=== PATIENT | male | born 1990 | race Caucasian/White ===

== ENCOUNTER 2017-02-10 17:07 | Emergency (ER) | payer SELFPAY ==
--- NOTE | 2017-02-10 18:04 | ER NURSING DOCUMENTATION ---
Nurse's Notes [facility] Name:Miguel Alex Age:27 yrs Sex:Male :1990 Arrival Date:02/10/2017 Time:17:07 Bed2 Private MD: Diagnosis:Finger Laceration Presentation: 02/10 17:09 Acuity: FELIX 4 rh 17:15 Presenting complaint: Patient states: Pt dropped an axe on the left middle finger, rh laceration to left middle finger. Transition of care: Home. 17:15 Method Of Arrival: Private Vehicle Triage Assessment: 17:15 General: Appears in no apparent distress, Behavior is cooperative. Pain: Complains of rh pain in palmar aspect of middle phalanx of left middle finger. Musculoskeletal: Circulation, motion, and sensation intact Range of motion intact in all extremities. Reports numbness in palmar aspect of proximal phalanx of left middle finger. Injury Description: Laceration sustained to palmar aspect of proximal phalanx of left middle finger is clean, 0.5 to 2.5 cm long, was sustained 30-60 minutes ago. is bleeding a small amount. Historical: - Allergies: No known drug Allergies; - Home Meds: 1. None - PMHx: None; - PSHx: None; - Tetanus: < 10 years. - Ebola Screening: : Patient negative for fever greater than or equal to 101.5 degrees Fahrenheit, and additional compatible Ebola Virus Disease symptoms. - Immunization history: Flu Vaccine < 1 year. - Social history: Smoking status: Patient states was never smoker of tobacco. Screenin:17 Infectious Disease Risk None. Abuse screen: Denies threats or abuse. Denies injuries rh from another. Nutritional screening: No deficits noted. Assessment: 17:16 See Triage Assessment done by same RN. rh Vital Signs: 17:16 BP 147 / 87; Pulse 58; Resp 16; Temp 98.3(TE); Pulse Ox 95% on R/A; Weight 83.91 kg; rh Height 5 ft. 9 in. (175.26 cm); Pain 6/10; 17:16 Body Mass Index 27.32 (83.91 kg, 175.26 cm) rh ED Course: 17:08 Patient arrived in ED. dp 17:09 Danielle Aquino is Primary Nurse. rh 17:09 Triage completed. rh 17:10 Pierre Sorto MD is Attending Physician. mn 17:16 Notified ED Physician of patient's arrival and chief complaint. Dr. Sorto notified. 17:17 Valuables Remains with patient Patient has correct armband on for positive rh identification. Bed in low position. Call light in reach. 17:35 Wound care to laceration located on palmar aspect of proximal phalanx of left middle rh finger was cleaned with soap and water, Irrigation Normal Saline Patient tolerated well. 17:47 Assist Provider Assist provider with laceration repair on palmar aspect of middle rh phalanx of left middle finger that was 2.5 cm. or less using sutures. Set up tray. Performed by Pierre Sorto MD Dressed with TUBE GAUZE Patient tolerated well. Administered Medications: No medications were administered Outcome: 17:54 Discharge ordered by . mn 18:03 Discharged to home ambulatory. 18:03 Condition: improved 18:03 Discharge Assessment: Patient awake, alert and oriented x 3. No cognitive and/or functional deficits noted. Patient verbalized understanding of disposition instructions. 18:03 Discharge instructions given to patient, Instructed on discharge instructions, follow up and referral plans. wound care, Demonstrated understanding of instructions. 18:03 Patient left the ED. Signatures: Pierre Sorto MD MD mn Danielle Aquino Lili Hendricks
--- NOTE | 2017-02-10 18:04 | ER PHYSICIAN DOCUMENTATION ---
Physician Documentation [facility] Name:Miguel Alex Age:27 yrs Sex:Male :1990 Arrival Date:02/10/2017 Time:17:07 Bed2 Private MD: Pierre West Disposition: 02/10/17 17:54 Discharged to Home/Self Care. Impression: Finger Laceration. - Condition is Good. - Discharge Instructions: FINGER LACERATION - LACERATION, Hand. - Medical Reconciliation form form. - Follow up: Emergency Department; When: 7 - 10 days; Reason: Staple/Suture removal. - Problem is new. - Symptoms have improved. HPI: 02/10 17:29 This 27 yrs old Male presents to ER via Private Vehicle with complaints of sc Finger Injury. 17:29 The patient or guardian reports a laceration. The complaints affect the left hand sc diffusely, palmar aspect of middle phalanx of left middle finger. Context: The problem was sustained outdoors, resulted from a direct blow, sharpening axe head, tried to catch it when dropped. Onset: The symptom(s)/episode began/occurred today. Associated signs and symptoms: Pertinent positives: decreased sensation distally. Historical: - Allergies: No known drug Allergies; - Home Meds: 1. None - PMHx: None; - PSHx: None; - Tetanus: < 10 years. - Ebola Screening: : Patient negative for fever greater than or equal to 101.5 degrees Fahrenheit, and additional compatible Ebola Virus Disease symptoms. - Immunization history: Flu Vaccine < 1 year. - Social history: Smoking status: Patient states was never smoker of tobacco. ROS: 17:51 Constitutional: Negative for fever, chills, and weight loss. sc 17:51 Eyes: Negative for injury, pain, redness, and discharge. sc 17:51 MS/extremity: Positive for injury or acute deformity, paresthesias. Exam: 17:52 Musculoskeletal/extremity: Extremities: grossly normal except: noted in the palmar sc aspect of middle phalanx of left middle finger: laceration, ROM: intact in all extremities, Circulation is intact in all extremities. decreased sensation. 17:52 Skin: Exam negative for acute changes. sc Vital Signs: 17:16 BP 147 / 87; Pulse 58; Resp 16; Temp 98.3(TE); Pulse Ox 95% on R/A; Weight 83.91 kg; rh Height 5 ft. 9 in. (175.26 cm); Pain 6/10; 17:16 Body Mass Index 27.32 (83.91 kg, 175.26 cm) rh Laceration: 17:52 Wound Repair of 2cm ( 0.8in ) subcutaneous laceration to palmar aspect of middle sc phalanx of left middle finger. Linear shaped.. Distal neuro/vascular/tendon intact. Anesthesia: Digital block administered with 2 mls of 2% lidocaine. Wound prep: Moderate cleansing by nurse. Skin closed with 3 4-0 Nylon using Horizontal mattress sutures. Dressed with Bacitracin, tube gauze. Patient tolerated well. MDM: 17:10 Patient medically screened. sc 17:53 Differential diagnosis: lac with small area of decreased sensation distally. Data sc reviewed: vital signs, nurses notes, and as a result, I will discharge patient. Counseling: I had a detailed discussion with the patient and/or guardian regarding: the historical points, exam findings, and any diagnostic results supporting the discharge/admit diagnosis, the need for outpatient follow up, to return to the emergency department if symptoms worsen or persist or if there are any questions or concerns that arise at home. 02/10 17:17 Order name: Wound Care; Complete Time: 17:47 rh Dispensed Medications: No medications were administered Signatures: Pierre Sorto MD MD sc Hofsess, Rachel
== END 2017-02-10 18:04 | disposition home or self-care (01) ==
LOC: ER 17:07
DX: S61.213A Laceration without foreign body of left middle finger without damage to nail, initial encounter (principal); W27.0XXA Contact with workbench tool, initial encounter; Y92.89 Other specified places as the place of occurrence of the external cause
CPT/HCPCS: 12041; 99283

== ENCOUNTER 2017-02-19 18:58 | Emergency (ER) | payer SELFPAY ==
--- NOTE | 2017-02-19 19:08 | ER NURSING DOCUMENTATION ---
Nurse's Notes [facility] Name:Miguel Alex Age:27 yrs Sex:Male :1990 Arrival Date:02/19/2017 Time:18:58 Bed2 Private MD: Diagnosis:Suture Removal Presentation: 02/19 19:00 Acuity: FELIX 4 bw2 19:05 Presenting complaint: Patient states: suture removal. Transition of care: patient was bw2 not received from another setting of care. 19:05 Method Of Arrival: Walk In [facility] Triage Assessment: 19:05 General: Appears in no apparent distress, Behavior is appropriate for age. Pain: Denies 2 pain. Historical: - Allergies: No known drug Allergies; - Tetanus: < 10 years. - Ebola Screening: : Patient negative for fever greater than or equal to 101.5 degrees Fahrenheit, and additional compatible Ebola Virus Disease symptoms. Patient denies exposure to infectious person. Patient denies travel to an Ebola-affected area in the 21 days before illness onset. No symptoms or risks identified at this time. . - Immunization history: Flu Vaccine unknown. - Social history: Smoking status: Patient states was never smoker of tobacco. Screenin:06 Infectious Disease Risk None. Abuse screen: Denies threats or abuse. Nutritional bw2 screening: No deficits noted. Assessment: 19:06 See Triage Assessment done by same RN. bw2 Vital Signs: 19:05 BP 133 / 62; Pulse 74; Resp 18; Temp 98(O); bw2 ED Course: 19:00 Patient arrived in ED. ma 19:00 Nela Gaytan is Primary Nurse. bw2 19:00 Triage completed. bw2 19:06 Valuables Given to family. Remains with patient. bw2 19:06 Removed sutures from left middle finger Suture site is well healed Patient tolerated bw2 well. Administered Medications: No medications were administered Outcome: 19:06 Discharged to home ambulatory. bw2 19:06 Condition: good 19:06 Discharge instructions given to patient, Instructed on discharge instructions, follow up and referral plans. 19:07 Discharge ordered by MD. bw2 19:07 Patient left the ED. 2 Signatures: Nela Gaytan [facility] Katrin Cortez ma
== END 2017-02-19 19:08 | disposition home or self-care (01) ==
LOC: ER 18:58
DX: Z48.02 Encounter for removal of sutures (principal); S61.213D Laceration without foreign body of left middle finger without damage to nail, subsequent encounter
CPT/HCPCS: 99281